=== PATIENT | female | born 1950 | race Caucasian/White ===

== ENCOUNTER 2018-11-14 11:45 | Inpatient (IN) ==
[2018-11-14] MEDS ORDERED: Acetaminophen 325 MG Tablet PO PRN (21:37)
[2018-11-14] MEDS ORDERED: Bisacodyl 10 MG Supp RECTAL PRN (21:37)
[2018-11-14] MEDS: Sod Chloride 0.9% Inj 1,000 ML IV.CONT SCH (22:23)
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
[2018-11-14] MEDS: Morphine Inj 4 MG/ML Vial IV.PUSH PRN (23:41)
[2018-11-15] MEDS: Morphine Inj 4 MG/ML Vial IV.PUSH PRN (03:34)
[2018-11-15 04:37] LABS: Baso % (Auto) 0.4 % (0.0-2.0); Eos # (Auto) 0.1 th/mm3 (0.0-0.4); Eos % (Auto) 1.7 % (0.0-4.0); Hematocrit 34.1 % (35.0-46.0); Hemoglobin 11.3 gm/dL (11.6-15.3); Lymph # (Auto) 1.4 th/mm3 (1.0-4.8); Lymph % (Auto) 25.5 % (9.0-44.0); Mean Corpuscular HGB Conc 33.1 % (32.0-36.0); Mean Corpuscular Hemoglobin 27.7 pg (27.0-34.0); Mean Corpuscular Volume 83.6 fL (80.0-100.0); Mono # (Auto) 0.6 th/mm3 (0.0-0.9); Mono % (Auto) 10.6 % (0.0-8.0); Neut # (Auto) 3.4 th/mm3 (1.8-7.7); Neut % (Auto) 61.8 % (16.0-70.0); Platelet Count 165 th/mm3 (150-450); Red Blood Count 4.08 mil/mm3 (4.00-5.30); Red Cell Distribution Width 13.2 % (11.6-17.2); White Blood Count 5.4 th/mm3 (4.0-11.0)
[2018-11-15 05:00] LABS: Alanine Aminotransferase 363 U/L (10-53); Albumin 2.9 g/dL (3.4-5.0); Anion Gap 8 meq/L (5-15); Aspartate Aminotransferase 623 U/L (15-37); Blood Urea Nitrogen 6 mg/dL (7-18); Calcium 8.5 mg/dL (8.5-10.1); Carbon Dioxide 28.6 meq/L (21.0-32.0); Chloride 105 meq/L (98-107); Glomerular Filtration Rate 89 mL/min (>89); Glucose,Random 107 mg/dL (74-106); Potassium 3.7 meq/L (3.5-5.1); Sodium 142 meq/L (136-145)
[2018-11-15 05:02] LABS: Alkaline Phosphatase 400 U/L (45-117); Total Protein 6.6 g/dL (6.4-8.2)
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
[2018-11-15 09:51] LABS: Prothrombin Time 10.3 sec (9.8-11.6)
--- NOTE | 2018-11-15 10:39 | MR ---
EXAM DATE: 11/15/2018 10:20 AM EST AGE/SEX: 68 years / Female INDICATIONS: Extremity weakness. Pain to right hip and leg. CLINICAL DATA: This is the patient's initial encounter. Patient reports that signs and symptoms have been present for 2 days and indicates a pain score of 0/10. MEDICAL/SURGICAL HISTORY: Arthritis. Diabetes mellitus type II. Graves disease. Cervical disc herniation. section. Thyroidectomy. Cholecystectomy. COMPARISON: No prior exams available for comparison. TECHNIQUE: Multiplanar, multisequence MRI of the lumbar spine was performed without contrast. Patie nt was scanned in a sitting position; neutral, flexion, and extension scans were performed in the sa gittal plane. FINDINGS: ALIGNMENT: Vertebral bodies are satisfactorily aligned without evidence of listhesis. FACET AND OSSEOUS STRUCTURES: T2 hyperintensity characteristic of bone marrow edema is identified al joao the inferior endplate of L2 and superior endplate of L3 along the left side of the vertebral bodi es. There is no loss of vertebral body height. There are no endplate or cortical destructive changes. Left-sided facet arthropathy is identified at the L2-3 level. Lumbar vertebral bodies and posterior elements are otherwise unremarkable. INTERVERTEBRAL DISC SPACES: The L2-3 intervertebral disc demonstrates significant asymmetric disc space narrowing especially rambo g the left side. There is mild T2 hyperintensity within the disc without evidence of cleft or fluid c ollection. A broad-based central and left posterior lateral disc protrusion with epidural and left fo raminal effacement is noted. Mild central spinal stenosis is noted. Mild degenerative disc disease is also noted at L1-2 with mild annular bulging. Intervertebral disc are otherwise unremarkable. NEUROLOGIC STRUCTURES: The spinal cord and nerve roots appear normal. There is no evidence of arleen lavon. CONCLUSION: 1. Central and left posterolateral broad-based disc protrusion at L2-3 2. Mild bone marrow edema along the L2-3 intervertebral disc with associated increased signal intens ity in the disc. This likely represents reactive changes to disc protrusion however surveillance for developing inflammatory process is recommended. 3. Mild disc bulge at L1-2. Electronically signed by: Riley Mcclure MD Board Certified Radiologist 11/15/2018 10:38 AM EST
--- NOTE | 2018-11-15 15:27 | P.CONOP ---
[facility] Orthopedics Consult Note - [facility] Consult date: 11/15/18 Requesting physician: Paula Goldstein Consult reason: fracture Chief complaint: right Hip Fracture Narrative: This is a 68 year old female who tripped and fell at home 3 days ago, landing on the right hip. She was unable to bear weight due to severe pain so she went to the ED yesterday in [place]. She was then transferred here once x-rays showed a nondisplaced femoral neck fracture. This morning she complains only of right hip pain which is worse with movement. She reports recent incontinence episodes but these have improved. She denies any current numbness or tingling. Review of Systems All other systems reviewed negative except as stated in [facility] - History History Provided By: Patient - Medical History Medical History: Medical History (Last Reviewed 11/15/18 @ 15:23 by Kelley Roger MD) Afib Arthritis Fibromyalgia Graves' disease Herniated disc, cervical Hx of hysterectomy Pinched vertebral nerve Rheumatoid arthritis Sjogren's syndrome - Surgical History Surgical History: Surgical History (Last Reviewed 11/15/18 @ 15:23 by Kelley Roger MD) History of History of thyroidectomy Hx of cholecystectomy - Family History Family History: Family History (Last Reviewed 11/15/18 @ 15:23 by Kelley Roger MD) Mother Heart disease Diabetes mellitus Family history of thyroid problem Daughter Family history of thyroid problem - Social History I have reviewed the patient's Social History: Yes - Tobacco History Second Hand Smoke Exposure: No Tobacco Use In Past 30 Days: No Smoking Status: Former smoker Tobacco Type: Cigarettes - Alcohol History How Often Do You Have a Drink Containing Alcohol: Monthly or less - Substance Use History Substance History: No History of Abuse - Immunization History Tetanus Immunization: Unsure Hx Influenza Vaccine This Season: Yes Medications and Allergies Active Medications: Active Medications Acetaminophen (Tylenol) 650 mg PO Q4H PRN PRN Reason: Temp > 100.4 Bisacodyl (Dulcolax Supp) 10 mg RECTAL DAILY PRN PRN Reason: SEVERE CONSITIPATION Sodium Chloride (Ns Inj) 1,000 mls @ 100 mls/hr IV.CONT .Q10H RONNELL Last Admin: 11/14/18 22:23 Dose: 100 mls/hr Levothyroxine Sodium (Synthroid) 75 mcg PO DAILY@0600 [facility] Morphine Sulfate (Morphine Inj) 2 mg IV.PUSH Q3H PRN PRN Reason: PAIN 1-10 AND/OR FEVER >101F Last Admin: 11/15/18 03:34 Dose: 2 mg Ondansetron HCl (Zofran Inj) 4 mg IV.PUSH Q6H PRN PRN Reason: NAUSEA OR VOMITING Sennosides (Senokot) 17.2 mg PO Q12H PRN PRN Reason: Moderate Constipation Allergies Allergy/AdvReac Type Severity Reaction Status Date / Time No Known Allergies Allergy Verified 11/14/18 12:33 Home Medications Medication Instructions Recorded Confirmed Type acetaminophen-codeine 1 tab PO Q4-6H PRN 06/26/18 11/15/18 History duloxetine 60 mg PO DAILY 06/26/18 11/15/18 History hydroxychloroquine 200 mg PO DAILY 06/26/18 11/15/18 History levothyroxine 75 mcg PO DAILY 06/26/18 11/15/18 History rivaroxaban [Xarelto] 20 mg PO BID 06/26/18 11/15/18 History zolpidem 5 mg PO HS PRN 06/26/18 11/15/18 History Exam Vital signs: Vital Signs 11/14/18 20:10 11/14/18 20:45 11/14/18 23:18 Temperature 98.6 F 98.3 F Pulse Rate 68 69 Respiratory Rate 19 18 18 Blood Pressure 123/60 120/56 L Pulse Oximetry 94 L 96 11/15/18 00:00 11/15/18 03:34 11/15/18 04:05 Temperature 98.5 F Pulse Rate 71 65 64 Respiratory Rate 18 Blood Pressure 121/59 L Pulse Oximetry 98 11/15/18 07:50 11/15/18 12:11 Temperature 98.4 F 97.7 F Pulse Rate 61 68 Respiratory Rate 19 19 Blood Pressure 130/63 129/63 Pulse Oximetry 94 L 97 Intake & Output 11/14/18 11/15/18 11/15/18 18:59 06:59 18:59 Weight 62.2 kg Other: # Voids 3 Date of Last Bowel Movement 11/13/18 Weight On Admission 61.4 kg - Constitutional no acute distress - Routine HEENT Exam Head: Present: normocephalic Eye: Present: EOMI - Routine Neck Exam Present: supple - Routine Respiratory Exam Absent: accessory muscle use - Routine Cardiovascular Exam Present: RRR - Routine Extremities Exam Comments: Right lower extremity tender about the hip with positive log roll. 2+DP. +EHL/ FHL/PF/DF. SILT. Left lower extremity and bilateral upper extremities with full active range of motion, no deformities, neurovascularly intact. - Routine Neurological Exam Present: alert, oriented X3 Results - Labs Result Diagrams: 11/15/18 04:13 11/15/18 04:13 Labs: Laboratory Results - last 24 hr 11/15/18 11/15/18 11/15/18 04:13 04:13 04:13 WBC 5.4 RBC 4.08 Hgb 11.3 L Hct 34.1 L MCV 83.6 MCH 27.7 MCHC 33.1 RDW 13.2 Plt Count 165 MPV 10.0 Neut % (Auto) 61.8 Lymph % (Auto) 25.5 Hardeman % (Auto) 10.6 H Eos % (Auto) 1.7 Baso % (Auto) 0.4 Neut # (Auto) 3.4 Lymph # (Auto) 1.4 Hardeman # (Auto) 0.6 Eos # (Auto) 0.1 Baso # (Auto) 0.0 WBC Differential . Differential Comment Auto diff final PT INR Sodium 142 Potassium 3.7 Chloride 105 Carbon Dioxide 28.6 Anion Gap 8 BUN 6 L Creatinine 0.66 Estimated GFR 89 Random Glucose 107 H Calcium 8.5 Total Bilirubin 0.8 AST 623 H ALT 363 H Alkaline Phosphatase 400 H Total Protein 6.6 Albumin 2.9 L Blood Type A Positive Blood Type Recheck Required Antibody Screen Negative 11/15/18 09:08 WBC RBC Hgb Hct MCV MCH MCHC RDW Plt Count MPV Neut % (Auto) Lymph % (Auto) Hardeman % (Auto) Eos % (Auto) Baso % (Auto) Neut # (Auto) Lymph # (Auto) Hardeman # (Auto) Eos # (Auto) Baso # (Auto) WBC Differential Differential Comment PT 10.3 INR 1.0 Sodium Potassium Chloride Carbon Dioxide Anion Gap BUN Creatinine Estimated GFR Random Glucose Calcium Total Bilirubin AST ALT Alkaline Phosphatase Total Protein Albumin Blood Type Blood Type Recheck Antibody Screen - Diagnostic results Imaging: Impressions Lumbar Spine MRI 11/15/18 00:00 CONCLUSION: 1. Central and left posterolateral broad-based disc protrusion at L2-3 2. Mild bone marrow edema along the L2-3 intervertebral disc with associated increased signal intensity in the disc. This likely represents reactive changes to disc protrusion however surveillance for developing inflammatory process is recommended. 3. Mild disc bulge at L1-2. Assessment and Plan - Assessment and Plan 68 year old female with right nondisplaced femoral neck fracture. Plan: Recommend surgical fixation with screws. Discussed risks, benefits and alternatives. Risks include but not limited to infection, bleeding, damage to neurovascular structures, malunion, nonunion, potential need for conversion to arthroplasty. Patient verbalized understanding and wished to proceed. Keep NPO for surgery today.
[2018-11-15] MEDS ORDERED: ceFAZolin 2 GM Premix Inj 2 GM/50 ML PIGGYBACK IV.SIG SCH (16:48)
--- NOTE | 2018-11-15 17:06 | P.BOP ---
Date of procedure: 11/15/18 Procedure: fixation of right subcapital femoral neck fracture using cannulated screws Implants: Synthes 7.0 cannulated screws size 75 x3 Surgeon: Kelley Roger MD Embossing Machine Operator Helper: Cherry Hudson Estimated blood loss (mL): 10 Pathology: none sent Condition: stable Disposition: PACU
[2018-11-15] MEDS ORDERED: fentaNYL Citrate Inj 100 MCG/2 ML Ampul ONE (17:32)
[2018-11-15] MEDS ORDERED: *Meperidine Inj 25 MG/ML Vial PERIprocedural Use ONLY ONE (17:37)
--- NOTE | 2018-11-15 17:48 | XR ---
EXAM DATE: 11/15/2018 5:34 PM EST AGE/SEX: 68 years / Female INDICATIONS: Surgical repair, right hip pinning. CLINICAL DATA: This is the patient's initial encounter. Patient reports that signs and symptoms have been present for 1 day and indicates a pain score of Nonresponsive. MEDICAL/SURGICAL HISTORY: None. None. COMPARISON: No prior exams available for comparison. FINDINGS: Spot films reveal triple lack screw fixation of the proximal right femur with near-anatomic alignment of the right femoral neck fracture. CONCLUSION: Screw fixation proximal right femur. Electronically signed by: Shahid Peraza MD Board Certified Radiologist 11/15/2018 5:46 PM EST
[2018-11-15] MEDS: Sod Chloride 0.9% Inj 1,000 ML IV.CONT SCH (21:07)
--- NOTE | 2018-11-15 22:34 | P.PNOP ---
Subjective Interval history: POD 0 s/p right hip pinning Physical Exam Vital signs: Vital Signs 11/14/18 23:18 11/15/18 00:00 11/15/18 03:34 Temperature 98.3 F 98.5 F Pulse Rate 69 71 65 Respiratory Rate 18 18 Blood Pressure 120/56 L 121/59 L Pulse Oximetry 96 98 11/15/18 04:05 11/15/18 07:50 11/15/18 08:00 Temperature 98.4 F Pulse Rate 64 61 61 Respiratory Rate 19 Blood Pressure 130/63 Pulse Oximetry 94 L 11/15/18 12:11 11/15/18 17:25 11/15/18 17:30 Temperature 97.7 F 97.4 F L Pulse Rate 68 63 66 Respiratory Rate 19 16 20 Blood Pressure 129/63 159/69 H 154/67 H Pulse Oximetry 97 100 98 11/15/18 17:45 11/15/18 18:00 11/15/18 18:15 Temperature 97.9 F Pulse Rate 61 70 59 L Respiratory Rate 18 18 20 Blood Pressure 163/67 H 157/70 H 143/63 H Pulse Oximetry 100 97 95 11/15/18 19:14 Temperature 98.6 F Pulse Rate 62 Respiratory Rate 17 Blood Pressure 140/61 Pulse Oximetry 98 Intake & Output 11/15/18 11/15/18 11/16/18 06:59 18:59 06:59 Intake Total 850 / 850 1000 / 1000 Output Total 185 / 185 Balance 665 / 665 1000 / 1000 Weight 62.2 kg Intake: IV 50 / 50 1000 / 1000 NS Inj 1,000 ML @ 100 mls/hr IV 1000 / 1000 .CONT .Q10H RONNELL Rx#:[id number] Ancef 2 GM Premix Inj 2 gm In 50 / 50 50 ml @ 100 mls/hr IV.SIG UNSCH X1 RONNELL Rx#:[id number] Anesthesia Amount 800 / 800 Output: Urine 175 / 175 Estimated Blood Loss Other: # Voids 3 1 Date of Last Bowel Movement 11/13/18 11/13/18 Weight On Admission 61.4 kg Results - Labs CBC & Chem 7: 11/15/18 04:13 11/15/18 04:13 Laboratory Results - last 24 hr 11/15/18 11/15/18 11/15/18 04:13 04:13 04:13 WBC 5.4 RBC 4.08 Hgb 11.3 L Hct 34.1 L MCV 83.6 MCH 27.7 MCHC 33.1 RDW 13.2 Plt Count 165 MPV 10.0 Neut % (Auto) 61.8 Lymph % (Auto) 25.5 Lee % (Auto) 10.6 H Eos % (Auto) 1.7 Baso % (Auto) 0.4 Neut # (Auto) 3.4 Lymph # (Auto) 1.4 Lee # (Auto) 0.6 Eos # (Auto) 0.1 Baso # (Auto) 0.0 WBC Differential . Differential Comment Auto diff final PT INR Sodium 142 Potassium 3.7 Chloride 105 Carbon Dioxide 28.6 Anion Gap 8 BUN 6 L Creatinine 0.66 Estimated GFR 89 Random Glucose 107 H Calcium 8.5 Total Bilirubin 0.8 AST 623 H ALT 363 H Alkaline Phosphatase 400 H Total Protein 6.6 Albumin 2.9 L Blood Type A Positive Blood Type Recheck Required Antibody Screen Negative 11/15/18 09:08 WBC RBC Hgb Hct MCV MCH MCHC RDW Plt Count MPV Neut % (Auto) Lymph % (Auto) Lee % (Auto) Eos % (Auto) Baso % (Auto) Neut # (Auto) Lymph # (Auto) Lee # (Auto) Eos # (Auto) Baso # (Auto) WBC Differential Differential Comment PT 10.3 INR 1.0 Sodium Potassium Chloride Carbon Dioxide Anion Gap BUN Creatinine Estimated GFR Random Glucose Calcium Total Bilirubin AST ALT Alkaline Phosphatase Total Protein Albumin Blood Type Blood Type Recheck Antibody Screen - Imaging Impressions Hip X-Ray 11/15/18 00:00 CONCLUSION: Screw fixation proximal right femur. Lumbar Spine MRI 11/15/18 00:00 CONCLUSION: 1. Central and left posterolateral broad-based disc protrusion at L2-3 2. Mild bone marrow edema along the L2-3 intervertebral disc with associated increased signal intensity in the disc. This likely represents reactive changes to disc protrusion however surveillance for developing inflammatory process is recommended. 3. Mild disc bulge at L1-2. Assessment and Plan - Assessment and Plan 68 year old female POD 0 s/p right hip pinning Plan: TTWB RLE PT for mobilization pain control VTE prophylaxis: resume home Xarelto tomorrow Follow up in [address] Roger
[2018-11-16] MEDS: ceFAZolin Inj 1 GM in Sodium Chlor 0.9% Inj 100 ML IV.SIG SCH ×2 (00:40→09:57)
[2018-11-16] MEDS: Sod Chloride 0.9% Inj 1,000 ML IV.CONT SCH ×3 (03:19→22:51)
[2018-11-16] MEDS: Levothyroxine 75 MCG Tablet PO SCH (05:25)
[2018-11-16 07:09] LABS: Hemoglobin 9.6 gm/dL (11.6-15.3); Mean Corpuscular HGB Conc 33.2 % (32.0-36.0); Mean Corpuscular Hemoglobin 27.9 pg (27.0-34.0); Mean Corpuscular Volume 83.9 fL (80.0-100.0); Mean Platelet Volume 10.3 fL (7.0-11.0); Platelet Count 183 th/mm3 (150-450); Red Blood Count 3.45 mil/mm3 (4.00-5.30); Red Cell Distribution Width 13.2 % (11.6-17.2); White Blood Count 6.2 th/mm3 (4.0-11.0)
--- NOTE | 2018-11-16 07:19 | P.PNOP ---
Subjective Interval history: POD 1 s/p perc pinning right hip doing well. pain controlled. states doing well with walker Physical Exam Vital signs: Vital Signs 11/15/18 07:50 11/15/18 08:00 11/15/18 12:11 Temperature 98.4 F 97.7 F Pulse Rate 61 61 68 Respiratory Rate 19 19 Blood Pressure 130/63 129/63 Pulse Oximetry 94 L 97 11/15/18 17:25 11/15/18 17:30 11/15/18 17:45 Temperature 97.4 F L Pulse Rate 63 66 61 Respiratory Rate 16 20 18 Blood Pressure 159/69 H 154/67 H 163/67 H Pulse Oximetry 100 98 100 11/15/18 18:00 11/15/18 18:15 11/15/18 19:14 Temperature 97.9 F 98.6 F Pulse Rate 70 59 L 62 Respiratory Rate 18 20 17 Blood Pressure 157/70 H 143/63 H 140/61 Pulse Oximetry 97 95 98 11/15/18 20:00 11/15/18 21:40 11/15/18 23:18 Temperature 97.9 F Pulse Rate 65 65 Respiratory Rate 18 17 Blood Pressure 106/52 L Pulse Oximetry 99 11/16/18 00:20 11/16/18 03:30 11/16/18 03:40 Temperature 98.7 F Pulse Rate 77 68 Respiratory Rate 16 17 Blood Pressure 120/56 L Pulse Oximetry 99 11/16/18 04:00 11/16/18 05:46 Temperature Pulse Rate 76 Respiratory Rate 17 Blood Pressure Pulse Oximetry Intake & Output 11/15/18 11/16/18 11/16/18 18:59 06:59 18:59 Intake Total 850 / 850 1000 / 1000 Output Total 185 / 185 Balance 665 / 665 1000 / 1000 Weight 62.3 kg Intake: IV 50 / 50 1000 / 1000 NS Inj 1,000 ML @ 100 mls/hr IV 1000 / 1000 .CONT .Q10H RONNELL Rx#:[id number] Ancef 2 GM Premix Inj 2 gm In 50 / 50 50 ml @ 100 mls/hr IV.SIG UNSCH X1 RONNELL Rx#:[id number] Anesthesia Amount 800 / 800 Output: Urine 175 / 175 Estimated Blood Loss 10 10 Other: # Voids 1 3 Date of Last Bowel Movement 11/13/18 11/14/18 Narrative: RLE: dressings clean and dry. intact. NVI Results - Labs CBC & Chem 7: 11/16/18 06:31 11/15/18 04:13 Laboratory Results - last 24 hr 11/15/18 11/16/18 09:08 06:31 WBC 6.2 RBC 3.45 L Hgb 9.6 L Hct 29.0 L MCV 83.9 MCH 27.9 MCHC 33.2 RDW 13.2 Plt Count 183 MPV 10.3 PT 10.3 INR 1.0 - Imaging Impressions Hip X-Ray 11/15/18 00:00 CONCLUSION: Screw fixation proximal right femur. Lumbar Spine MRI 11/15/18 00:00 CONCLUSION: 1. Central and left posterolateral broad-based disc protrusion at L2-3 2. Mild bone marrow edema along the L2-3 intervertebral disc with associated increased signal intensity in the disc. This likely represents reactive changes to disc protrusion however surveillance for developing inflammatory process is recommended. 3. Mild disc bulge at L1-2. Assessment and Plan - Assessment and Plan 68 year old female POD 1 s/p right hip pinning Plan: TTWB RLE PT for mobilization pain control VTE prophylaxis: resume home Xarelto today plan for home with [facility] tomorrow if doing well Follow up in [address] Roger
[2018-11-16 07:36] LABS: Alanine Aminotransferase 205 U/L (10-53); Albumin 2.6 g/dL (3.4-5.0); Anion Gap 7 meq/L (5-15); Aspartate Aminotransferase 139 U/L (15-37); Calcium 7.8 mg/dL (8.5-10.1); Carbon Dioxide 28.7 meq/L (21.0-32.0); Chloride 104 meq/L (98-107); Glomerular Filtration Rate Greater Than 89 mL/min (>89); Glucose,Random 111 mg/dL (74-106); Potassium 4.2 meq/L (3.5-5.1); Sodium 140 meq/L (136-145)
[2018-11-16 07:42] LABS: Alkaline Phosphatase 290 U/L (45-117); Blood Urea Nitrogen 9 mg/dL (7-18)
--- NOTE | 2018-11-16 08:32 | P.DCO ---
- Diagnosis (1) Fracture of proximal end of right femur Status: Acute - Physical Therapy Order: Evaluate and treat, Improve ambulation, Strength and gait training - Case Management Consult Case Management Consult-Home Health: Yes - Certification I have seen patient Kaykay Ocampo on 11/16/18. My clinical findings support the need for the requested home health care services because: post op right hip pinning, s/p fall. Limited ability to care for self, Need for psychosocial assistance, High risk of falls I certify that my clinical findings support that this patient is homebound because: Post-op weakness, Unsteady gait/balance (1) Fracture of proximal end of right femur Qualifiers: Encounter type: initial encounter Fracture type: closed Qualified Code(s): S72.001A - Fracture of unspecified part of neck of right femur, initial encounter for closed fracture
[2018-11-16] MEDS ORDERED: Zolpidem Tartrate 5 MG Tablet PO PRN (08:33)
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
[2018-11-16] MEDS: Duloxetine 60 MG DR Capsule PO SCH (09:55)
[2018-11-16] MEDS ORDERED: Rivaroxaban 20 MG Tablet PO SCH (17:00)
--- NOTE | 2018-11-16 17:13 | MB ---
cc: Ricki Vaughan MD DATE: 11/16/2018 TIME: 2:30 p.m. Report of initial comprehensive floor inpatient neurosurgical consultation. The patient was interviewed, examined, the documentation, laboratory evaluation and imaging reviewed. CHIEF COMPLAINT: Fall and a hip fracture. HISTORY OF PRESENT ILLNESS: This is a 68-year-old white female who apparently suffered a slip and fall in August and developed a myriad of symptoms including neck and low back pain. She apparently was diagnosed with a cervical disk herniation. In any case, she was treated conservatively with physical therapy, which is ongoing. Apparently on 11/12/2018 after getting out of bed, she fell and suffered a hip fracture on the right. In any case, she was subsequently admitted and underwent open reduction internal fixation of the right hip fracture. Because of her complaints of low back pain and some sciatica as well as developing recent onset of urinary incontinence, which now has resolved and 1 episode of fecal incontinence, an MRI scan of the lumbosacral spine was performed on this admission, which reveals diffuse spondylitic changes with a central disk herniation at L2-L3 resulting in spinal and lateral recess stenosis bilaterally. Neurosurgical consultation has been requested. PAST MEDICAL HISTORY: Remarkable for history of atrial fibrillation, SVT, osteoarthritis, rheumatoid arthritis, Sjogren syndrome, herniated cervical disk, Graves disease, fibromyalgia. PAST SURGICAL HISTORY: Remarkable for , as well as a thyroidectomy and a cholecystectomy, right heel surgery, as well as the open reduction internal fixation of her right hip fracture. MEDICATIONS: Include: 1. Tylenol with codeine. 2. Duloxetine. 3. Hydroxychloroquine. 4. Levothyroxine. 5. Xarelto. 6. Zolpidem. ALLERGIES: SHE HAS NO KNOWN DRUG ALLERGIES. SOCIAL HISTORY: Denies any history of illicit drug use ethanol abuse or cigarette smoking. FAMILY HISTORY: Remarkable for history of diabetes, heart disease, stroke, and colon and prostate cancer. REVIEW OF SYSTEMS: The patient admits to some recent weight loss. She admits to intermittent fever and chills, night sweats. She also admits to headaches and dizziness and has apparently Meniere's disease. She denies any difficulty with her vision or hearing or thinking or memory or speech, swallowing or chest pain or shortness of breath or abdominal pain. She also admits to some gait disturbance with difficulty initiating walking with what she describes as what appears to be bradykinesia with a question of some postural imbalance. She also has an apparent history of tremor. There is also probably a history of anxiety and depression. NEUROLOGICAL EXAMINATION: VITAL SIGNS: Her temperature is 98, her heart rate is 70, her blood pressure is 123/60, her respiratory rate is 16, pulse oximetry is 96% on room air. MENTAL STATUS: Testing finds her to be awake and alert. She is oriented x 3. Cognitive function is grossly intact. Her speech is fluent. Cranial nerve testing 2-12 are grossly intact. Visual celestin are full to confrontation. Extraocular movements full, without diplopia or nystagmus. Motor examination found bulk and tone to be within normal limits. Power testing was 5+/5+ throughout. It was difficult to evaluate her right lower extremity proximally due to recent hip surgery. Sensory examination was intact to light touch and position throughout. Deep tendon reflexes were 1-2+ and symmetric without pathological reflexes noted. Cerebellar, gait, Romberg, tandem were not tested. Head was normocephalic. External auditory canals were clear. Skin was clear without masses. Neck supple without meningismus. Lumbosacral spine evaluation revealed no real pain to palpation with limited range of motion. The evaluation was quite limited. Pulses were 4+ present and symmetrical throughout. IMPRESSION: My impression is that the patient has suffered a series of falls, which resulted in what appears to be herniated disks in her cervical and lumbosacral spine. She recently suffered with episodes of incontinence, which now have resolved. An MRI scan of lumbosacral spine performed this admission reveals what appears to be a central disk herniation with central spinal stenosis with bilateral lateral recess stenosis. Currently, there is no sign of radiculopathy or neurogenic claudication. RECOMMENDATIONS AND PLAN: Certainly at this point, continued conservative neurosurgical approach is warranted. I would agree with continuing with rehabilitation and physical therapy. I do not believe that her episodes of incontinence were related to her lumbar spine disease. I do feel she might benefit from referral to a neurologist for consultation, evaluation and treatment of her movement disorder and Meniere's disease, as well as a myriad of complaints. In any case, at this point from a neurosurgical perspective, I will sign off the case. I gave the patient my card and she can return to see me in followup in the Neurosurgery clinic in 4-6 weeks. She can call for an appointment. I discussed this all with her and she understood and was agreeable. Thank you for allowing me to participate in the care of this patient. MD RENAN Feliz/margarita , 03:03 PM , 03:15 PM
--- NOTE | 2018-11-16 21:56 | US ---
EXAM DATE: 11/16/2018 9:09 PM EST AGE/SEX: 68 years / Female INDICATIONS: Elevated labs. CLINICAL DATA: This is the patient's initial encounter. Patient reports that signs and symptoms have been present for 1 day and indicates a pain score of 0/10. MEDICAL/SURGICAL HISTORY: Arthritis. Graves disease. A-fib. Herniated cervical discs. Sjogren's syndrome. section. Thyroidectomy. Cholecystectomy. COMPARISON: . MEASUREMENTS: Liver:__ 13.3 cm. Common Bile Duct:__ 2mm. Right Kidney:__ 13.2 x x 5.7 cm. FINDINGS: Liver: Increased echogenicity without focal lesion or ductal dilatation. Portal Vein: Hepatopedal flow seen in portal vein. Common Duct: No intraluminal mass or stone visualized. Gallbladder: Surgically absent. Pancreas: The visualized portions are within normal limits Right Kidney: Echogenic with 1.4 cm cyst present. Other: None. CONCLUSION: 1. Fatty infiltration of the liver. No biliary ductal dilatation. 2. 1.4 cm right renal cyst. Gallbladder surgically absent. Electronically signed by: Shahid Peraza MD Board Certified Radiologist 11/16/2018 9:55 PM EST
[2018-11-17] MEDS: Levothyroxine 75 MCG Tablet PO SCH (05:14)
[2018-11-17 06:45] LABS: Albumin 2.7 g/dL (3.4-5.0)
[2018-11-17 06:47] LABS: Total Protein 6.1 g/dL (6.4-8.2)
--- NOTE | 2018-11-17 06:59 | P.PNOP ---
Subjective Interval history: s/p perc pinning of right hip by Dr Roger doing well. pain controlled. out of bed with therapy Physical Exam Vital signs: Vital Signs 11/16/18 08:00 11/16/18 11:55 11/16/18 15:09 Temperature 97.4 F L 98.4 F 98 F Pulse Rate 57 L 86 83 Respiratory Rate 18 18 18 Blood Pressure 104/51 L 123/98 H 112/56 L Pulse Oximetry 98 95 96 11/16/18 19:53 11/16/18 20:00 11/16/18 23:44 Temperature 97.7 F 98.2 F Pulse Rate 76 80 75 Respiratory Rate 17 17 Blood Pressure 124/57 L 121/60 Pulse Oximetry 99 99 11/17/18 00:12 11/17/18 03:26 Temperature 98.3 F Pulse Rate 78 72 Respiratory Rate 17 Blood Pressure 116/59 L Pulse Oximetry 99 Intake & Output 11/16/18 11/16/18 11/17/18 06:59 18:59 06:59 Intake Total 1000 / 1000 100 / 100 100 / 100 Balance 1000 / 1000 100 / 100 100 / 100 Weight 62.3 kg Intake: IV 1000 / 1000 100 / 100 100 / 100 NS Inj 1,000 ML @ 100 mls/hr IV 1000 / 1000 .CONT .Q10H [facility] Rx#:[id number] Ancef Inj 1 GM In NS Inj 100 ML 100 / 100 100 / 100 @ 200 mls/hr IV.SIG Q8H [facility] Rx #:[id number] Other: # Voids 3 1 3 Date of Last Bowel Movement 11/14/18 11/14/18 11/14/18 Narrative: RLE: dressing appears blood soaked. nvi distally Results - Labs CBC & Chem 7: 11/16/18 06:31 11/16/18 06:31 Laboratory Results - last 24 hr 11/16/18 11/16/18 11/17/18 06:31 06:31 05:47 WBC 6.2 RBC 3.45 L Hgb 9.6 L Hct 29.0 L MCV 83.9 MCH 27.9 MCHC 33.2 RDW 13.2 Plt Count 183 MPV 10.3 Sodium 140 Potassium 4.2 Chloride 104 Carbon Dioxide 28.7 Anion Gap 7 BUN 9 Creatinine 0.64 Estimated GFR Greater than 89 Random Glucose 111 H Calcium 7.8 L Total Bilirubin 0.3 0.3 Direct Bilirubin 0.1 0.1 Indirect Bilirubin 0.2 0.2 GGT 230 H AST 139 H 58 H ALT 205 H 110 H Alkaline Phosphatase 290 H 231 H Lactate Dehydrogenase 238 Total Protein 6.0 L D 6.1 L Albumin 2.6 L 2.7 L - Imaging Impressions Liver Ultrasound 11/16/18 00:00 CONCLUSION: 1. Fatty infiltration of the liver. No biliary ductal dilatation. 2. 1.4 cm right renal cyst. Gallbladder surgically absent. Assessment and Plan - Assessment and Plan 68 year old female POD 2 s/p right hip pinning Plan: TTWB RLE PT for mobilization pain control VTE prophylaxis: resume home Xarelto today plan for home with [facility] today if doing well Follow up in [address] Roger
[2018-11-17 07:03] LABS: Hepatitits B Surface Antigen Nonreactive (Nonreactive)
--- NOTE | 2018-11-17 07:03 | P.DCO ---
- Physical Therapy Physical Therapy: Gait training Hip: Hip fracture, Protocol: Right Right Lower Extremity Weight Bearing: Toe touch weight bearing - Nursing Dressing changes: Daily dressing change, Xeroform, Coverderm/Primapore - Certification Need for Home Health services: I have seen patient Kaykay Ocampo on 11/17/18. My clinical findings support the need for the requested home health care services because: Need for Home Health Services: Limited mobility due to disease progression Homebound Certification: I certify that my clinical findings support that this patient is homebound because: Homebound Certification: Post-op weakness
[2018-11-17 07:28] LABS: Hepatitis A IgM Antibody Nonreactive (Nonreactive)
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
[2018-11-17] MEDS: Duloxetine 60 MG DR Capsule PO SCH (09:41)
--- NOTE | 2018-11-17 12:55 | P.OP ---
- Preoperative Diagnosis (1) Fracture of proximal end of right femur - Postoperative Diagnosis (1) Fracture of proximal end of right femur Date of procedure: 11/15/18 Procedure: Fixation of right femoral neck fracture using cannulated screws Implants: [employer] Anesthesia: GETA Surgeon: Kelley Roger MD Hydrography Teacher: Cherry Hudson Estimated blood loss (mL): 10 Pathology: none sent Operation and Findings: Indications: This is a 68 year old female who was brought to the ED after she fell and sustained a right nondisplaced femoral neck fracture. Surgical fixation was recommended. Risks were discussed with the patient and family, including but not limited to risks of bleeding, infection, neurovascular injury , nonunion, malunion, hardware failure, potential need for further surgeries including hip replacement, and complications related to anesthesia. Patient verbalized understanding and wished to proceed with surgery once she was medically optimized. Description of Operation: The patient was identified in the preoperative holding area and the correct site was marked. She was then brought back to the operating room where general anesthesia was administered. She was transferred to the [place] table. Preoperative antibiotics were given. The right leg was placed in traction and the left leg placed in a well leg grace. A well padded perineal post was placed. C-arm was brought in and confirmed a nondisplaced femoral neck fracture. The right hip was then prepped and draped in the usual sterile fashion. A time out was performed prior to start. I then made a small incision over the lateral aspect of the femur. A guidewire for a 7.0 cannulated screw was placed centrally and inferiorly in the neck into the femoral head. Two more guidewires were then placed anterosuperiorly and posterosuperiorly to this wire in an inverted triangle configuration. Appropriate lengths were measured and the lateral cortex drilled. Three short threaded screws were selected and placed over the guidewires, getting excellent purchase. Imaging confirmed anatomic reduction and excellent hardware position with all screw threads past the fracture site. The guidewires were removed and final images were taken. The wound was then irrigated and closed in layered fashion. Sterile dressings were applied and the patient was then awoken from general anesthesia and taken to the recovery room in good condition. ESE Helm was present during the entire procedure to include patient positioning and the procedure. The medical necessity of the Nurse Practitioner [employer] was indicated in this case due to the complexity of the case itself. During the surgical case, the veterinary assistant technician was working the back table while my Complex Care Nurse Practitioner ESE was directly assisting me. Disposition: The patient will be touchdown weight bearing for 6 weeks.
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
== END 2018-11-17 15:49 | disposition home health service (06) | DRG 482 ==
LOC: N06 11:45 → NEDDLT 11:45
PROVIDERS: ADMIT Hospitalist; ATTEND Hospitalist
CPT/HCPCS: 72148; 73502; 73564; 73700; 76000; 76705; 80048; 80053; 80074; 80076; 82977; 83615; 85025; 85027; 85610; 85730; 86850; 86900; 86901; 93005; 97110; 97116; 97162; 99284; 99285; C1713; C1769; J0131; J0690; J2175; J2250; J2270; J3010; J7030